=== PATIENT | female | born 1960 | race Caucasian/White ===

== ENCOUNTER 2018-05-03 13:44 | Emergency (ER) | payer MEDICARE, MEDICAID ==
[~2018-05-03] VITALS: Ht 162.6 cm; Wt 78.6 kg
[~2018-05-03 13:44] MED LIST: AMLO10TA55 PO; ATOR40TA28 PO; LAMO200T PO; METF500T6 PO; PERCT10 PO; PROM25 PO; QUET200T PO; VALS320T2 PO; ZOLP10TA6 PO
[2018-05-03 14:19] LABS: GLUCOSE,POINT OF CARE 206 MG/DL (70-110)
[2018-05-03] MEDS ORDERED: CEPHALEXIN MONOHYDRATE 500 MG CAPSULE PO ONE (16:30)
[2018-05-03] MEDS ORDERED: KETOROLAC TROMETHAMINE 30 MG/ML VIAL IM ONE (16:30)
[2018-05-03 16:55] VITALS: BP 143/79
== END 2018-05-03 17:22 | disposition home or self-care (01) ==
LOC: EMS 13:45
DX: S99.921A Unspecified injury of right foot, initial encounter (principal); L03.115 Cellulitis of right lower limb; J44.9 Chronic obstructive pulmonary disease, unspecified; I25.2 Old myocardial infarction; I10 Essential (primary) hypertension; Z95.1 Presence of aortocoronary bypass graft; Z88.5 Allergy status to narcotic agent; Z79.84 Long term (current) use of oral hypoglycemic drugs; W22.8XXA Striking against or struck by other objects, initial encounter; Y93.89 Activity, other specified; Y92.89 Other specified places as the place of occurrence of the external cause; Y99.8 Other external cause status
CPT/HCPCS: 73630; 82948; 82962; 96372; 99284; J1885

== ENCOUNTER 2018-06-12 12:43 | Emergency (ER) | payer MEDICARE, MEDICAID ==
[~2018-06-12] VITALS: Ht 165.1 cm; Wt 75.5 kg
[~2018-06-12 12:43] MED LIST changes: +METF-960 PO; -METF500T6 PO
[2018-06-12 13:03] LABS: GLUCOSE,POINT OF CARE 135 MG/DL (70-110)
[2018-06-12] MEDS ORDERED: MECLIZINE HCL 25 MG TABLET PO ONE (17:00)
[2018-06-12] MEDS ORDERED: PROMETHAZINE HCL 25 MG TABLET PO ONE (17:00)
[2018-06-12 17:37] VITALS: BP 148/77
== END 2018-06-12 17:46 | disposition home or self-care (01) ==
LOC: EMS 12:44
DX: R42 Dizziness and giddiness (principal); J44.9 Chronic obstructive pulmonary disease, unspecified; I10 Essential (primary) hypertension; I25.2 Old myocardial infarction; Z95.1 Presence of aortocoronary bypass graft; Z88.5 Allergy status to narcotic agent; Z79.84 Long term (current) use of oral hypoglycemic drugs
CPT/HCPCS: 99283

== ENCOUNTER 2021-04-21 07:55 | Emergency (ER) | payer MEDICARE, MEDICAID ==
[~2021-04-21] VITALS: Ht 170.2 cm; Wt 77.3 kg
[~2021-04-21 07:55] MED LIST changes: +OXYC-601 PO; -PERCT10 PO
[2021-04-21] MEDS ORDERED: ASPI-1227 PO (08:02)
[2021-04-21] MEDS ORDERED: KETOROLAC TROMETHAMINE 30 MG/ML VIAL IM ONE (09:45)
[2021-04-21] MEDS ORDERED: PERTUSS(ACELL),DIPH,TET VAC/PF 0.5 ML SYRINGE IM. ONE (09:45)
[2021-04-21] MEDS ORDERED: SODIUM CHLORIDE 0.9% 250 ML IRRIG SOLUTION BOTTLE IRRIG ONE (09:45)
[2021-04-21 11:31] VITALS: BP 112/53
== END 2021-04-21 11:39 | disposition home or self-care (01) ==
LOC: EMS 07:56
DX: S51.811A Laceration without foreign body of right forearm, initial encounter (principal); M25.511 Pain in right shoulder; S00.03XA Contusion of scalp, initial encounter; I10 Essential (primary) hypertension; J44.9 Chronic obstructive pulmonary disease, unspecified; I25.2 Old myocardial infarction; Z79.84 Long term (current) use of oral hypoglycemic drugs; Z79.82 Long term (current) use of aspirin; Z79.899 Other long term (current) drug therapy; W06.XXXA Fall from bed, initial encounter; Y93.89 Activity, other specified; Y92.89 Other specified places as the place of occurrence of the external cause; Z88.5 Allergy status to narcotic agent; Y99.8 Other external cause status
CPT/HCPCS: 73030; 90471; 90715; 96372; 99284; J1885; 99283